=== PATIENT | male | born 1990 | race Caucasian/White ===

== ENCOUNTER 2016-06-04 01:49 | Emergency (ER) | payer MEDICAID ==
[~2016-06-04] VITALS: Ht 167.6 cm; Wt 79.5 kg
[~2016-06-04 01:49] MED LIST: AZIT250T94 PO; CYCL-319 PO; ONDA4TAB35 PO
[2016-06-04 02:01] VITALS: Ht 167.6 cm; Wt 79.5 kg
[2016-06-04 05:33] LABS: ADD SCAN DIFF NO
[2016-06-04 05:37] LABS: BASOPHILS % 0.2 % (0.0-2.0); EOSINOPHILS # 0.1 10^3/ul (0.0-0.5); EOSINOPHILS % 0.6 % (0.0-7.0); HEMATOCRIT 43.4 % (42.0-52.0); HEMOGLOBIN 15.4 g/dl (14.0-18.0); LYMPHOCYTES # 1.1 10^3/ul (0.8-2.9); LYMPHOCYTES % 8.3 % (15.0-51.0); MEAN CORPUSCULAR HGB CONC 35.5 g/dl (32.0-37.0); MEAN CORPUSCULAR VOLUME 84.4 fl (82.0-101.0); MEAN PLATELET VOLUME 8.9 fl (7.4-10.4); MONOCYTE # 0.7 10^3/ul (0.3-0.9); MONOCYTES % 5.5 % (0.0-11.0); NEUTROPHIL # 10.9 10^3/ul (1.6-7.5); NEUTROPHILS % 84.9 % (39.0-77.0); PLATELET COUNT 362 10^3/UL (140-415); RED BLOOD COUNT 5.14 10^6/ul (4.70-6.10); RED CELL DISTRIBUTION WIDTH 12.6 % (11.5-14.5); WHITE BLOOD COUNT 12.8 10^3/ul (4.8-10.8)
[2016-06-04 05:38] LABS: URINE BLOOD (Dip) POC Negative (NEGATIVE)
[2016-06-04 05:50] LABS: ALBUMIN 4.7 g/dl (3.3-4.9)
[2016-06-04 05:51] LABS: POTASSIUM 4.3 mmol/L (3.5-5.1)
[2016-06-04 05:53] LABS: ALBUMIN/GLOBULIN RATIO 1.46; BILIRUBIN,INDIRECT 0.8 mg/dl (0-1.1); BILIRUBIN,TOTAL 0.8 mg/dl (0.2-1.3); CREATININE 0.93 mg/dl (0.61-1.24); TOTAL PROTEIN 7.9 g/dl (6.1-8.1)
[2016-06-04 05:54] LABS: CALCIUM 9.5 mg/dl (8.4-10.2)
[2016-06-04] MEDS ORDERED: ONDA4TAB8 PO (06:38)
[2016-06-04] MEDS ORDERED: ONDANSETRON (ODT) 4 MG TAB ODT STA (06:38)
--- NOTE | 2016-06-04 06:40 | ERD ---
ER Documentation Chief Complaint Date/Time DATE: 06/04/16 TIME: 06:39 Chief Complaint AP and vomiting since 1AM HPI 25-year-old man complains of 1 episode of clear nonbloody nonbilious emesis shortly after beginning amoxicillin for bronchitis diagnosis. Last year he had similar symptoms of epigastric discomfort and a CT scan of the abdomen and pelvis was unremarkable. He has had crampy abdominal pain shortly after beginning amoxicillin, no blood per rectum or melena, no rash, no fevers or chills, no chest pain or shortness of breath. ROS All systems reviewed and are negative except as per history of present illness. Medications Home Meds Active Scripts Ondansetron Hcl* (Zofran*) 4 Mg Tablet, 4 MG PO Q6H for NAUSEA AND/OR VOMITING, #15 TAB Prov:ELIZABETH POLK MD 06/04/16 Ondansetron Hcl* (Zofran* ODT) 4 mg -ODT Tab.disper, 4 MG PO Q6 Y for NAUSEA AND /OR VOMITING, #10 TAB Prov:CODY DIAZ PA-C 07/12/15 Azithromycin* (Zithromax*) 250 Mg Tablet, 250 MG PO .ZPACK DIRECTED, #6 TAB TAKE 500 MG (2 TABS) THE FIRST DAY THEN 250 MG (1 TAB) DAYS 2-5 Prov:CODY DIAZ PA-C 07/12/15 Cyclobenzaprine Hcl* (Cyclobenzaprine Hcl*) 10 Mg Tablet, 10 MG PO TID Y for PAIN, #15 TAB Prov:LENORA BOCANEGRA NP 11/21/14 Allergies Allergies: Coded Allergies: No Known Drug Allergies (Verified Allergy, Unknown, 05/06/14) PMhx/Soc Recent bronchitis diagnosis and currently using amoxicillin and promethazine History of Surgery: No Anesthesia Reaction: No Hx Neurological Disorder: No Hx Respiratory Disorders: No Hx Cardiac Disorders: No Hx Psychiatric Problems: No Hx Miscellaneous Medical Probl: No Hx Alcohol Use: No Hx Substance Use: No Hx Tobacco Use: Yes FmHx Family History: No diabetes Physical Exam Vitals Vital Signs Date Time Temp Pulse Resp B/P Pulse Ox O2 Delivery O2 Flow Rate FiO2 06/04/16 02:01 99.1 91 20 129/76 99 Physical Exam GENERAL: Well-developed, well-nourished, well-hydrated, in no apparent distress , looks nontoxic in appearance HEENT: Moist mucous membranes, pink conjunctiva, no cervical spine tenderness or step-off deformities, no goiter, no jaundice or icterus, extraocular movements intact without pain. No submandibular induration, and no pharyngeal erythema NEURO: Alert and oriented 3, cranial nerves II through XII intact bilaterally, pupils equal round reactive to light, no focal deficits or facial asymmetry, sensation intact distally Strength 5/5 in upper and lower extremities bilaterally CARDIAC: Regular rate and rhythm, no murmurs rubs or gallops LUNGS: Clear bilaterally no wheezing crackles or stridor ABDOMEN: Soft nontender, no guarding, no rigidity, no rebound, no psoas sign no obturator sign. Normoactive bowel sounds SKIN: Warm and dry to touch, no abrasions, contusions, or hematomas, no lacerations, no ecchymosis, no target lesions, and without ulcers EXTREMITIES: No clubbing cyanosis or edema, calves are bilaterally symmetrical, no Homans sign, no popliteal cord sign. Distal pulses equal and bilateral PSYCH: Normal affect without agitation or irritability Result Diagram: 06/04/1652206/04/1623 Results 24 hrs Laboratory Tests Test 06/04/16 05:23 06/04/16 05:37 White Blood Count 12.810^3/ul Red Blood Count 5.1410^6/ul Hemoglobin 15.4g/dl Hematocrit 43.4% Mean Corpuscular Volume 84.4fl Mean Corpuscular Hemoglobin 30.0pg Mean Corpuscular Hemoglobin Concent 35.5g/dl Red Cell Distribution Width 12.6% Platelet Count 32717^3/UL Mean Platelet Volume 8.9fl Neutrophils % 84.9% Lymphocytes % 8.3% Monocytes % 5.5% Eosinophils % 0.6% Basophils % 0.2% Nucleated Red Blood Cells % 0.0/100WBC Neutrophils # 10.910^3/ul Lymphocytes # 1.110^3/ul Monocytes # 0.710^3/ul Eosinophils # 0.110^3/ul Basophils # 0.010^3/ul Nucleated Red Blood Cells # 0.010^3/ul Sodium Level 142mmol/L Potassium Level 4.3mmol/L Chloride Level 104mmol/L Carbon Dioxide Level 25mmol/L Anion Gap 17 Blood Urea Nitrogen 21mg/dl Creatinine 0.93mg/dl Glucose Level 110mg/dl Calcium Level 9.5mg/dl Total Bilirubin 0.8mg/dl Direct Bilirubin 0.00mg/dl Indirect Bilirubin 0.8mg/dl Aspartate Amino Transf (AST/SGOT) 30IU/L Alanine Aminotransferase (ALT/SGPT) 40IU/L Alkaline Phosphatase 78IU/L Total Protein 7.9g/dl Albumin 4.7g/dl Globulin 3.20g/dl Albumin/Globulin Ratio 1.46 Lipase 63U/L Bedside Urine pH (LAB) 6.5 Bedside Urine Protein (LAB) Trace Bedside Urine Glucose (UA) Negative Bedside Urine Ketones (LAB) Trace Bedside Urine Blood Negative Bedside Urine Nitrite (LAB) Negative Bedside Urine Leukocyte Esterase (L Negative Current Medications Medications (Trade) Dose Ordered Sig/Delmi Route PRN Reason Start Time Stop Time Status Last Admin Dose Admin Ondansetron HCl (Zofran Odt) 4 mg ONCE STAT ODT 06/04/16 06:38 06/04/16 06:39 DC 06/04/16 06:43 Procedures/MDM I administered Zofran 4 mg p.o. for nausea although he had no episodes of vomiting while here, I recommended he continue his medications as prescribed Differential diagnoses considered, included but not limited to acute coronary syndrome, pulmonary embolism, aortic dissection, abdominal aortic aneurysm, sepsis, stroke, meningitis, encephalitis, pneumonia, appendicitis, cholecystitis , bowel obstruction, pyelonephritis, nephrolithiasis, cystitis, as well as metabolic, hematologic, and electrolyte abnormalities. As well as abscess, cellulitis, fractures, and dislocations. Patient feels much better at this time, and vital signs are normal, symptoms have improved. I did give strict instructions to return to the ED if symptoms continue or worsen, patient will otherwise follow-up with primary care physician. Patient understood instructions and agreed to plan. Departure Diagnosis: Primary Impression: Vomiting Vomiting type: unspecified Vomiting Intractability: non-intractable Nausea presence: with nausea Qualified Code: R11.2 - Non-intractable vomiting with nausea, unspecified vomiting type Additional Impression: Medication side effect Encounter type: initial encounter Qualified Code: T88.7XXA - Medication side effect, initial encounter Condition: Good Patient Instructions: Vomiting (8Y-Adult) ELIZABETH POLK MD Jun 04, 2016 06:40
== END 2016-06-04 07:35 | disposition home or self-care (01) ==
LOC: E/R 01:49
DX: R11.2 Nausea with vomiting, unspecified (principal); T36.0X5A Adverse effect of penicillins, initial encounter; Z87.891 Personal history of nicotine dependence
CPT/HCPCS: 36415; 80053; 81003; 83690; 85025; Z7502; Z7610; 99283

== ENCOUNTER 2017-04-09 00:43 | Emergency (ER) | END 2017-04-09 04:20 | disposition home or self-care (01) ==

== ENCOUNTER 2017-06-08 19:31 | Emergency (ER) | END 2017-06-08 22:18 | disposition home or self-care (01) ==

== ENCOUNTER 2017-06-25 16:49 | Emergency (ER) | END 2017-06-25 17:54 | disposition home or self-care (01) ==

== ENCOUNTER 2017-06-28 19:25 | Emergency (ER) | END 2017-06-28 20:17 | disposition home or self-care (01) ==

== ENCOUNTER 2017-10-22 21:52 | Emergency (ER) | END 2017-10-22 23:59 | disposition home or self-care (01) ==

== ENCOUNTER 2018-11-21 14:51 | Emergency (ER) | payer MEDICAID ==
[~2018-11-21] VITALS: Ht 167.6 cm; Wt 79.5 kg
[~2018-11-21 14:51] MED LIST changes: +AZIT250T PO; -AZIT250T94 PO; -CYCL-319 PO; +CYCL10TA7 PO; +DIAZ5TAB PO; +DOXY100T34 PO; +HYDR-4011 PO; +IBUP-1542 PO; +IBUP-1561 PO; +ONDA4TAB8 PO
[2018-11-21 14:54] VITALS: BP 138/92; PULSE 88; RESP 16; Ht 167.6 cm; Wt 79.5 kg
== END 2018-11-21 16:19 | disposition home or self-care (01) ==
LOC: FTE 14:51 → E/R 16:19
DX: N50.811 Right testicular pain (principal); N50.812 Left testicular pain; R05 Cough; Z87.891 Personal history of nicotine dependence
CPT/HCPCS: 71045; 76870; 81003; Z7502